=== PATIENT | female | born 1955 | race Two or more races ===

== ENCOUNTER 2016-03-19 10:26 | Emergency (ER) | payer MEDICAID, OTHER ==
[~2016-03-19] VITALS: Ht 160 cm; Wt 73.9 kg
[2016-03-19 11:39] VITALS: BP 120/66
== END 2016-03-19 13:00 | disposition home or self-care (01) ==
LOC: ER 10:33
DX: S90.122A Contusion of left lesser toe(s) without damage to nail, initial encounter (principal); S00.33XA Contusion of nose, initial encounter; Z91.041 Radiographic dye allergy status; W22.8XXA Striking against or struck by other objects, initial encounter; Y93.89 Activity, other specified; Y99.8 Other external cause status; Y92.89 Other specified places as the place of occurrence of the external cause
CPT/HCPCS: 73630

== ENCOUNTER 2016-10-23 21:29 | Emergency (ER) | payer OTHER ==
[~2016-10-23] VITALS: Ht 160 cm; Wt 76.2 kg
[2016-10-23 21:56] VITALS: BP 144/81
[2016-10-23 22:24] LABS: Basophils # (auto) 0 uL; Basophils % (auto) 0.3 % (0.0-2.0); CONDITION Y; Eosinophils # (auto) 0.3 uL; Eosinophils % (auto) 2.8 % (0.0-7.0); Hematocrit 43.7 % (36.0-46.0); Hemoglobin 14.7 g/dL (12.2-16.2); Lymphocytes % (auto) 34.3 % (10.0-50.0); Mean Corpuscular Hemoglobin 29.6 pg (28.0-32.0); Mean Corpuscular Hgb Conc. 33.7 g/dL (32.0-36.0); Mean Corpuscular Volume 87.8 fL (80.0-100.0); Mean Platelet Volume 8.6 fL (7.4-10.4); Monocytes # (auto) 0.9 uL; Monocytes % (auto) 7.9 % (0.0-12.0); Neutrophils # (auto) 6.3 uL; Neutrophils % (auto) 54.7 % (37.0-80.0); Platelet Count (auto) 273 10^3/uL (140-450); Red Cell Distribution Width 13.9 % (11.6-16.0); White Blood Cell 11.6 10^3/uL (4.4-10.8)
[2016-10-23 22:31] LABS: Urine Bilirubin Negative (Negative); Urine Blood Negative /uL (Negative); Urine Color Yellow (Yellow); Urine Glucose Normal (Normal); Urine Ketone Negative (Negative); Urine Mucus FEW (None Seen); Urine Nitrite Negative (Negative); Urine RBC 1 /hpf (0 - 4); Urine Squamous Epithelial Cell FEW /hpf (<5); Urine Urobilinogen Normal (Negative); Urine pH 6.5 (5.0-8.0)
[2016-10-23 22:44] LABS: Albumin 3.6 g/dL (3.4-5.0); Anion Gap 9 (5-15); BUN/Creatinine Ratio 32.3; Blood Urea Nitrogen 21 mg/dL (7-18); Calcium 8.3 mg/dL (8.5-10.1); Carbon Dioxide 27 mmol/L (21-32); Chloride 107 mmol/L (98-107); GFR African American 119 mL/min; GFR Non-African American 98 mL/min; Glucose 85 mg/dL (74-106); Magnesium 2.5 mg/dL (1.6-2.6); Potassium 3.8 mmol/L (3.5-5.1); Sodium 143 mmol/L (136-145)
[2016-10-23 22:54] LABS: Alkaline Phosphatase 107 U/L (45-117); Aspartate Aminotransferase 19 U/L (15-37); Bilirubin, Total 0.3 mg/dL (0.2-1.0); Total Protein 7.2 g/dL (6.4-8.2)
== END 2016-10-24 06:38 | disposition left against medical advice (07) ==
LOC: ER 21:53
DX: M54.5 Low back pain (principal); Z53.21 Procedure and treatment not carried out due to patient leaving prior to being seen by health care provider
CPT/HCPCS: 36415; 80053; 81001; 83735; 84484; 85025; 93005

== ENCOUNTER 2018-07-10 14:17 | Emergency (ER) | payer OTHER ==
[~2018-07-10] VITALS: Ht 160 cm; Wt 77.1 kg
[2018-07-10 14:45] LABS: Basophils # (auto) 0.1 uL; Basophils % (auto) 0.8 % (0.0-2.0); Eosinophils # (auto) 0.3 uL; Eosinophils % (auto) 3.3 % (0.0-7.0); Hematocrit 47.3 % (36.0-46.0); Hemoglobin 15.7 g/dL (12.2-16.2); Lymphocytes # (auto) 3.2 uL; Lymphocytes % (auto) 32.8 % (10.0-50.0); Mean Corpuscular Hemoglobin 29.6 pg (28.0-32.0); Mean Corpuscular Hgb Conc. 33.3 g/dL (32.0-36.0); Mean Corpuscular Volume 88.9 fL (80.0-100.0); Monocytes # (auto) 0.7 uL; Monocytes % (auto) 7.6 % (0.0-12.0); Neutrophils # (auto) 5.5 uL; Neutrophils % (auto) 55.5 % (37.0-80.0); Nucleated Red Blood Cells % 0.1 %; Platelet Count (auto) 222 10^3/uL (140-450); Red Blood Cells 5.31 10^6/uL (4.0-5.20); Red Cell Distribution Width 13.5 % (11.8-14.3); White Blood Cell 9.9 10^3/uL (4.4-10.8)
[2018-07-10 14:59] LABS: INR 0.94 (0.9-1.15); Partial Thromboplastin Time 30.5 sec (23.78-33.04); Prothrombin Time 10.1 sec (9.27-12.13)
[2018-07-10 15:13] LABS: Albumin 3.9 g/dL (3.4-5.0); Anion Gap 8 (5-15); Blood Urea Nitrogen 19 mg/dL (7-18); Calcium 8.8 mg/dL (8.5-10.1); Carbon Dioxide 25 mmol/L (21-32); Chloride 106 mmol/L (98-107); Glucose 105 mg/dL (74-106); Potassium 3.9 mmol/L (3.5-5.1); Sodium 139 mmol/L (136-145)
[2018-07-10 15:20] LABS: Alanine Aminotransferase 33 U/L (13-56); Alkaline Phosphatase 96 U/L (45-117); Aspartate Aminotransferase 25 U/L (15-37); BUN/Creatinine Ratio 30.6; Bilirubin, Total 0.3 mg/dL (0.2-1.0); GFR African American 125 mL/min; GFR Non-African American 103 mL/min; Total Protein 7.5 g/dL (6.4-8.2)
[2018-07-10] MEDS ORDERED: ASPirin 81 mg TAB PO ONE (16:15)
[2018-07-10 20:51] VITALS: BP 113/71
== END 2018-07-10 21:26 | disposition home or self-care (01) ==
LOC: ER 14:17
DX: R07.89 Other chest pain (principal); Z91.041 Radiographic dye allergy status
CPT/HCPCS: 36415; 71045; 80053; 83735; 83880; 84484; 85025; 85379; 85610; 85730; 93005; 94761

== ENCOUNTER 2018-11-28 14:04 | Emergency (ER) | payer SELFPAY ==
[~2018-11-28] VITALS: Ht 160 cm; Wt 77.1 kg
[2018-11-28 14:37] VITALS: BP 134/75
[2018-11-28 15:14] LABS: Albumin 3.8 g/dL (3.4-5.0); Anion Gap 7 (5-15); Blood Urea Nitrogen 15 mg/dL (7-18); Calcium 8.5 mg/dL (8.5-10.1); Carbon Dioxide 24 mmol/L (21-32); Chloride 105 mmol/L (98-107); Glucose 124 mg/dL (74-106); Potassium 3.8 mmol/L (3.5-5.1); Sodium 136 mmol/L (136-145)
[2018-11-28 15:18] LABS: Basophils # (auto) 0.1 uL; Basophils % (auto) 0.4 % (0.0-2.0); Eosinophils # (auto) 0 uL; Eosinophils % (auto) 0.2 % (0.0-7.0); Hematocrit 46.2 % (36.0-46.0); Hemoglobin 15.2 g/dL (12.2-16.2); Lymphocytes # (auto) 1.5 uL; Lymphocytes % (auto) 10.3 % (10.0-50.0); Mean Corpuscular Hemoglobin 29.3 pg (28.0-32.0); Mean Corpuscular Hgb Conc. 32.9 g/dL (32.0-36.0); Mean Corpuscular Volume 89.1 fL (80.0-100.0); Monocytes # (auto) 0.5 uL; Monocytes % (auto) 3.8 % (0.0-12.0); Neutrophils # (auto) 12.2 uL; Neutrophils % (auto) 85.3 % (37.0-80.0); Platelet Count (auto) 228 10^3/uL (140-450); Red Blood Cells 5.18 10^6/uL (4.0-5.20); Red Cell Distribution Width 13.6 % (11.8-14.3); White Blood Cell 14.3 10^3/uL (4.4-10.8)
[2018-11-28 15:20] LABS: Alanine Aminotransferase 25 U/L (13-56); Alkaline Phosphatase 95 U/L (45-117); Aspartate Aminotransferase 20 U/L (15-37); Bilirubin, Total 0.4 mg/dL (0.2-1.0); GFR African American 160 mL/min; GFR Non-African American 132 mL/min; Total Protein 7.5 g/dL (6.4-8.2)
[2018-11-28 15:38] LABS: Urine Bacteria NONE SEEN /hpf (None Seen); Urine Blood Negative /uL (Negative); Urine Mucus FEW (None Seen); Urine Specific Gravity 1.025 (1.001-1.035); Urine WBC 1 /hpf (0 - 5)
== END 2018-11-28 19:50 | disposition left against medical advice (07) ==
LOC: ER 14:04
DX: R11.2 Nausea with vomiting, unspecified (principal); R10.9 Unspecified abdominal pain; Z53.21 Procedure and treatment not carried out due to patient leaving prior to being seen by health care provider
CPT/HCPCS: 36415; 80053; 81001; 84484; 85025

== ENCOUNTER 2018-11-30 10:17 | Emergency (ER) | payer OTHER ==
[~2018-11-30] VITALS: Ht 160 cm; Wt 77.1 kg
[2018-11-30 10:48] VITALS: BP 130/79
== END 2018-11-30 13:52 | disposition left against medical advice (07) ==
LOC: ER 10:17
DX: R11.2 Nausea with vomiting, unspecified (principal); R10.13 Epigastric pain; R19.7 Diarrhea, unspecified; Z88.8 Allergy status to other drugs, medicaments and biological substances

== ENCOUNTER 2021-02-24 14:01 | Emergency (ER) | payer MEDICARE, MEDICAID ==
[~2021-02-24] VITALS: Ht 160 cm; Wt 77.1 kg
[2021-02-24 19:03] VITALS: BP 126/61
[2021-02-24] MEDS ORDERED: ACET1CAP14 PO ×2 (19:41→20:06)
[2021-02-24] MEDS ORDERED: IBUP800T27 PO (19:42)
[2021-02-24] MEDS ORDERED: traMADol HCL 50 MG TAB PO ONE (19:45)
[2021-02-24] MEDS ORDERED: TRAM50TA2 PO (19:51)
== END 2021-02-24 19:54 | disposition home or self-care (01) ==
LOC: ER 14:01
DX: S53.402A Unspecified sprain of left elbow, initial encounter (principal); E66.9 Obesity, unspecified; Z68.30 Body mass index [BMI] 30.0-30.9, adult; Z79.1 Long term (current) use of non-steroidal anti-inflammatories (NSAID); Z79.899 Other long term (current) drug therapy; Z88.8 Allergy status to other drugs, medicaments and biological substances; W01.0XXA Fall on same level from slipping, tripping and stumbling without subsequent striking against object, initial encounter; Y93.89 Activity, other specified; Y92.89 Other specified places as the place of occurrence of the external cause; Y99.8 Other external cause status
CPT/HCPCS: 73080

== ENCOUNTER 2021-03-12 12:13 | Emergency (ER) | payer MEDICARE, MEDICAID ==
[~2021-03-12] VITALS: Ht 160 cm; Wt 76.2 kg
[~2021-03-12 12:13] MED LIST: ACET1CAP14 PO; IBUP800T27 PO; TRAM50TA2 PO
[2021-03-12 15:20] VITALS: BP 127/81
== END 2021-03-12 16:41 | disposition home or self-care (01) ==
LOC: ER 12:13
DX: S09.90XA Unspecified injury of head, initial encounter (principal); Z91.041 Radiographic dye allergy status; Z98.890 Other specified postprocedural states; W19.XXXA Unspecified fall, initial encounter; Y93.89 Activity, other specified; Y92.89 Other specified places as the place of occurrence of the external cause; Y99.8 Other external cause status
CPT/HCPCS: 70450

== ENCOUNTER 2022-02-22 10:08 | Emergency (ER) | payer MEDICARE, MEDICAID ==
[~2022-02-22] VITALS: Ht 160 cm; Wt 83.0 kg
[2022-02-22] MEDS ORDERED: CLIN300C8 PO (10:52)
[2022-02-22] MEDS ORDERED: CEPH-510 PO (10:52)
[2022-02-22] MEDS ORDERED: cefTRIAXone SOD 1,000 MG VL IM ONE (11:00)
[2022-02-22] MEDS ORDERED: CLINDAMYCIN 600 MG/4 ML VL IM ONE (11:00)
[2022-02-22 11:32] LABS: Basophils # (auto) 0.1 10 ^3/uL (0-0.2); Basophils % (auto) 0.8 % (0.0-2.0); Eosinophils # (auto) 0.2 10 ^3/uL (0-0.8); Eosinophils % (auto) 2.3 % (0.0-7.0); Hemoglobin 15.1 g/dL (12.2-16.2); Lymphocytes # (auto) 2.7 10 ^3/uL (0.4-5.4); Lymphocytes % (auto) 29.4 % (10.0-50.0); Mean Corpuscular Hemoglobin 30.5 pg (28.0-32.0); Mean Corpuscular Hgb Conc. 34.2 g/dL (32.0-36.0); Mean Corpuscular Volume 89.1 fL (80.0-100.0); Monocytes # (auto) 0.6 10 ^3/uL (0-1.3); Monocytes % (auto) 6.2 % (0.0-12.0); Neutrophils # (auto) 5.7 10 ^3/uL (1.6-8.6); Neutrophils % (auto) 61.3 % (37.0-80.0); Nucleated Red Blood Cells % 0.2 %; Red Blood Cells 4.94 10^6/uL (4.0-5.20); Red Cell Distribution Width 13.5 % (11.8-14.3); White Blood Cell 9.3 10^3/uL (4.4-10.8)
[2022-02-22 12:11] LABS: Albumin 3.6 g/dL (3.4-5.0); Calcium 8.9 mg/dL (8.5-10.1); Potassium 4.5 mmol/L (3.5-5.1)
[2022-02-22 12:14] LABS: BUN/Creatinine Ratio 21.9
[2022-02-22 12:16] LABS: Bilirubin, Total 0.4 mg/dL (0.2-1.0); Total Protein 6.9 g/dL (6.4-8.2)
[2022-02-22 13:07] LABS: Urine Bacteria NONE SEEN /hpf (None Seen); Urine Blood Negative /uL (Negative); Urine Mucus FEW (None Seen); Urine Specific Gravity 1.025 (1.001-1.035); Urine WBC 8 /hpf (0 - 5)
[2022-02-22] MEDS ORDERED: CLINDAMYCIN HCL 150 MG CAP ONE (16:37)
[2022-02-22] MEDS ORDERED: CLINDAMYCIN HCL 150 MG CAP PO ONE (16:45)
[2022-02-22 16:50] VITALS: BP 136/98
== END 2022-02-22 17:08 | disposition home or self-care (01) ==
LOC: ER 10:12
DX: L03.211 Cellulitis of face (principal); K04.7 Periapical abscess without sinus; K02.9 Dental caries, unspecified; Z79.899 Other long term (current) drug therapy; Z79.2 Long term (current) use of antibiotics; Z79.1 Long term (current) use of non-steroidal anti-inflammatories (NSAID); Z88.8 Allergy status to other drugs, medicaments and biological substances
CPT/HCPCS: 36415; 70450; 70486; 71045; 80053; 81001; 84484; 85025; 93005; 96372; 99285; J0696; J7030

== ENCOUNTER 2022-04-18 12:38 | Emergency (ER) | payer MEDICARE, MEDICAID ==
[~2022-04-18] VITALS: Ht 160 cm; Wt 76.4 kg
[~2022-04-18 12:38] MED LIST changes: +CEPH-510 PO; +CLIN300C8 PO
[2022-04-18 13:47] VITALS: BP 135/84
[2022-04-18] MEDS ORDERED: ACETAMINOPHEN 500 MG TAB PO ONE (14:30)
[2022-04-18] MEDS ORDERED: ACET-1080 PO (14:47)
[2022-04-18] MEDS ORDERED: METH4PAK PO (14:47)
== END 2022-04-18 14:53 | disposition home or self-care (01) ==
LOC: ER 12:38
DX: T78.40XA Allergy, unspecified, initial encounter (principal); G44.209 Tension-type headache, unspecified, not intractable; Z98.890 Other specified postprocedural states; X58.XXXA Exposure to other specified factors, initial encounter
CPT/HCPCS: 70450

== ENCOUNTER 2025-02-14 12:30 | Inpatient (IN) | payer MEDICARE, MEDICAID ==
[~2025-02-14] VITALS: Ht 160 cm; Wt 76.3 kg
[~2025-02-14 12:30] MED LIST changes: +ACET-1080 PO; +ACET650T12 PO; +CLIN1CAP70 PO; -CLIN300C8 PO; +IBUP-1456 PO; -IBUP800T27 PO; +METH4PAK PO; +TAMS-35 PO; +ZOFR4T PO
--- NOTE | 2025-02-14 13:21 | ED.PDOC ---
History of Present Illness HPI Comments 69-year-old female who is Tajik-speaking presents to the ER with prior medical history of hydronephrosis two years ago: Surgical history of hernia repair surgery and a chief complaint of flank pain. Patient reports on having 10/10 right-sided flank pain for the past three days associated with nausea. Patient currently has not no urinary symptoms at this time. Patient took [id number] medication without relief. Denies any other symptoms at this time. Denies chills, fever, /V/D, SOB, CP. No other associated symptoms, modifiers, recent injuries or sick contacts present at this time. Chief Complaint: Flank Pain Time Seen by MD: 12:50 Reviewed Notes: Nurses Notes, Medications, Allergies Allergies: Coded Allergies: Iodine (Verified Allergy, Unknown, 02/14/25) Home Meds Active Scripts Ondansetron Odt 4MG Tab (ZOFRAN PO) 4 Mg Tb, 4 MG PO TIDPRN PRN for 3 Days, #9 TAB ODT TAB-DISSOLVE IN MOUTH, THEN SWALLOW Prov:DIANE LANDA MD 08/03/24 Acetaminophen (Acetaminophen Er) 650 Mg Tab, 650 MG PO TIDPRN PRN for 5 Days, #15 TAB Prov:DIANE LANDA MD 08/03/24 Tamsulosin Hcl (Flomax) 0.4 Mg Cap, 1 CAP PO DAILY for 7 Days, #30 CAP 11 Refills Prov:DIANE LANDA MD 08/03/24 Information Source: Patient Mode of Arrival: Ambulatory Severity: Moderate Timing: Days Duration: Since onset, Days Prehospital treatment: None Past Medical History Past Medical History (Other): Hydronephrosis two years ago Surgical History: Hernia Repair CUSTOM DESIGNER History: Denies all CUSTOM DESIGNER Hx Family History Family History: Reviewed,noncontributory to illness, Unknown Social History Smoker: Non-Smoker Alcohol: Denies ETOH Use Drugs: Denies Drug Use Lives In: Home Constitutional: denies: chills, diaphoresis, fatigue, fever, malaise, sweats, weakness, others EENTM: denies: blurred vision, double vision, ear bleeding, ear discharge, ear drainage, ear pain, ear ringing, eye pain, eye redness, hearing loss, mouth pain, mouth swelling, nasal discharge, nose bleeding, nose congestion, nose pain, photophobia, tearing, throat pain, throat swelling, voice changes, others Respiratory: denies: cough, hemoptysis, orthopnea, SOB at rest, shortness of breath, SOB with excertion, stridor, wheezing, others Cardiovascular: denies: chest pain, dizzy spells, diaphoresis, Dyspnea on e xertion, edema, irregular heart beat, left arm pain, lightheadedness, palpitations, PND, syncope, others Gastrointestinal: reports: nausea; denies: abdomen distended, abdominal pain, blood streaked bowels, constipated, diarrhea, dysphagia, difficulty swallowing, hematemesis, melena, poor appetite, poor fluid intake, rectal bleeding, rectal pain, vomiting, others Genitourinary: reports: flank pain; denies: abnormal vagina bleeding, burning, dyspareunia, dysuria, frequency, hematuria, incontinence, pain, , vagina discharge, urgency, others Neurological: denies: dizziness, fainting, headache, left sided numbness, left sided weakness, numbness, paresthesia, pre-existing deficit, right sided numbness, right sided weakness, seizure, speech problems, tingling, tremors, weakness, others Musculoskeletal: denies: back pain, gout, joint pain, joint swelling, muscle pain, muscle stiffness, neck pain, others Integumetry: denies: bruises, change in color, change in hair/nails, dryness, laceration, lesions, lumps, rash, wounds, others Allergic/Immunocompromised: denies: Difficulty Healing, Frequent Infections, Hives, Itching, others Hematologic/Lymphatic: denies: anemia, blood clots, easy bleeding, easy bruising, swollen glands, others Endocrine: denies: excessive hunger, excessive sweating, excessive thirst, excessive urination, flushing, intolerance to cold, intolerance to heat, unexplained weight gain, unexplained weight loss, others Psychiatric: denies: anxiety, bipolar disorder, depression, hopeless, panic disorder, schizophrenia, sleepless, suicidal, others All Other Systems: Reviewed and Negative Physical Exam General Appearance: Moderate Distress, Normal HEENT: Normal ENT Inspection, Pharynx Normal, TMs Normal Neck: Full Range of Motion, Non-Tender, Normal, Normal Inspection Respiratory: Chest Non-Tender, Lungs Clear, No Accessory Muscle Use, No Respiratory Distress, Normal Breath Sounds Cardiovascular: No Edema, No JVD, No Murmur, No Gallop, Normal Peripheral Pulses, Regular Rate/Rhythm Breast Exam: Deferred Gastrointestinal: No Organomegaly, Non Tender, No Pulsatile Mass, Normal Bowel Sounds, Soft Genitalia: Deferred Pelvic: Deferred Rectal: Deferred Extremities: No calf tenderness, Normal capillary refill, Normal inspection, Normal range of motion, Non-tender, No pedal edema Musculoskeletal : Apperance: Normal Neurologic: Alert, health information technician II-XII nml as Tested, No Motor Deficits, Normal Affect, Normal Mood, No Sensory Deficits Cerebellar Function: Normal Reflexes: Normal Skin: Dry, Normal Color, Warm Peripheral Pulses: 3+ Radial (R), 3+ Radial (L) Lymphatic: No Adenopathy Was a procedure done? Was a procedure done?: No Differential Dx Considerations may include: Anemia Electrolyte imbalance X-Ray, Labs, Meds, VS Vital Signs Date Time Temp Pulse Resp B/P (MAP) Pulse Ox O2 Delivery O2 Flow Rate FiO2 02/14/25 15:51 98.2 81 16 148/47 (80) 98 98.2 02/14/25 12:37 97.5 82 20 120/68 96 97.5 Lab Test 02/14/25 13:26 Range/Units White Blood Count 8.4 4.4-10.8 10^3/uL Red Blood Count 5.07 4.0-5.20 10^6/uL Hemoglobin 15.0 12.2-16.2 g/dL Hematocrit 44.7 36.0-46.0 % Mean Corpuscular Volume 88.2 80.0-100.0 fL Mean Corpuscular Hemoglobin 29.5 28.0-32.0 pg Mean Corpuscular Hemoglobin Concent 33.4 32.0-36.0 g/dL Red Cell Distribution Width 13.3 11.8-14.3 % Platelet Count 219 140-450 10^3/uL Mean Platelet Volume 8.6 6.9-10.8 fL Neutrophils (%) (Auto) 55.9 37.0-80.0 % Lymphocytes (%) (Auto) 31.4 10.0-50.0 % Monocytes (%) (Auto) 8.4 0.0-12.0 % Eosinophils (%) (Auto) 3.5 0.0-7.0 % Basophils (%) (Auto) 0.8 0.0-2.0 % Neutrophils # (Auto) 4.7 1.6-8.6 10 ^3/uL Lymphocytes # (Auto) 2.6 0.4-5.4 10 ^3/uL Monocytes # (Auto) 0.7 0-1.3 10 ^3/uL Eosinophils # (Auto) 0.3 0-0.8 10 ^3/uL Basophils # (Auto) 0.1 0-0.2 10 ^3/uL Nucleated Red Blood Cells 0.0 % Sodium Level 139 136-145 mmol/L Potassium Level 3.9 3.5-5.1 mmol/L Chloride Level 103 98-107 mmol/L Carbon Dioxide Level 29 20-31 mmol/L Anion Gap 7 5-15 Blood Urea Nitrogen 10 9-23 mg/dL Creatinine 0.61 0.550-1.02 mg/dL Glomerular Filtration Rate Calc 96 >90 mL/min BUN/Creatinine Ratio 16.4 10.0-20.0 Serum Glucose 116 H 74-106 mg/dL Calcium Level 9.2 8.7-10.4 mg/dL Patient alert. Came in because of flank pain. Vitals stable. Answering questions. Possibly has a kidney stone. CT scan of the abdomen reviewed does show possible liver lesion. She will need MRI. For better patient care she will be admitted for further studies. Was told to follow up with her primary care physician. Was told to come back if there is any problem. Time of 1ST Reevaluation: 13:18 Reevaluation 1ST: Unchanged Patient Education/Counseling: Diagnosis, Treatment, Prognosis Family Education/Counseling: No Family Present SEPSIS Sepsis Screen Date sepsis recognized/suspect: Feb 14, 2025 Time Sepsis recognized/suspect: 1237 Recent Procedure: No On Antibiotic Therapy: No Respiratory Rate >20: No Heart Rate >90: No Temp<36 C (96.8 F) or >38.3 C: No SBP <90 or MAP <65 mmHG: No New Acute Mental Status Change: No Is the patient on CPAP, BIPAP,: No Physician Orders Urinalysis (02/14/25 13:15) Ct Ab Pel Wo Con-No Oral Or Iv (02/14/25 13:16) Vital Signs Date Time Temp Pulse Resp B/P (MAP) Pulse Ox O2 Delivery O2 Flow Rate FiO2 02/14/25 15:51 98.2 81 16 148/47 (80) 98 98.2 02/14/25 12:37 97.5 82 20 120/68 96 97.5 Laboratory Tests Test 02/14/25 13:26 White Blood Count 8.4 10^3/uL (4.4-10.8) Departure 1 Departure Time of Disposition: 14:09 Impression: Primary Impression: Acute abdominal pain Additional Impression: Liver lesion Disposition: ADMITTED INPATIENT Admit to: Med Surg Condition: Guarded Critical Care Note Critical Care Time?: No Stability Stability form required: No Heart Score Heart Score: Heart Score Response (Comments) Value History N/A 0 EKG N/A 0 Age N/A 0 Risk Factors N/A 0 Troponin N/A 0 Total 0 I personally scribed for STACEY SAMANIEGO MD ([email or web address]) on 02/14/25 at 13:20. Electronically submitted by Abel Lyons ([email or web address]). STACEY SAMANIEGO MD Feb 14, 2025 13:20
[2025-02-14 14:01] LABS: Hematocrit 44.7 % (36.0-46.0); Hemoglobin 15.0 g/dL (12.2-16.2); Mean Corpuscular Hemoglobin 29.5 pg (28.0-32.0); Mean Corpuscular Volume 88.2 fL (80.0-100.0); Nucleated Red Blood Cells % 0.0 %
[2025-02-14 14:06] LABS: Chloride 103 mmol/L (98-107); Potassium 3.9 mmol/L (3.5-5.1); Sodium 139 mmol/L (136-145)
[2025-02-14 14:07] LABS: Anion Gap 7 (5-15); Carbon Dioxide 29 mmol/L (20-31)
[2025-02-14 14:08] LABS: Calcium 9.2 mg/dL (8.7-10.4)
[2025-02-14 14:13] LABS: BUN/Creatinine Ratio 16.4 (10.0-20.0); Blood Urea Nitrogen 10 mg/dL (9-23)
[2025-02-14 14:17] LABS: Glucose 116 mg/dL (74-106)
--- NOTE | 2025-02-14 15:50 | DVH ---
INDICATION: stone TECHNIQUE: CT axial images of the abdomen and pelvis are obtained without contrast. Coronal and sagittal reformats were obtained. Radiation Dose Information: CTDI volume is 10.4 mGy. Dose-length product is 540.29 mGy*cm COMPARISON: CT CT AB PEL WO CON-NO ORAL OR IV on DOS: 08/03/24 FINDINGS: There is limited interpretation of the abdomen and pelvis without administration of intravenous contrast. Lung bases demonstrate no pleural effusion. Adrenal glands, spleen, pancreas unremarkable in shape. Hepatic steatosis.m Right hepatic lobe hypodense lesion measuring 4.4 x 4.4 cm previously 4.1 x 3.6 cm. Left hepatic lobe calcifications. Kidneys demonstrate no hydronephrosis no nephrolithiasis. Stomach is partially distended. Small bowel loops normal in caliber. Colonic diverticular disease. Moderate to large volume stool in the colon. No secondary signs for appendicitis. Abdominal aortic atherosclerotic disease. Bladder partially distended. No free pelvic fluid. No inguinal lymphadenopathy. [id number] bilateral sacroiliac degenerative joint disease. Moderate lumbar degenerative disc disease most pronounced at L5-S1.4 mm anterolisthesis L5 on S1.4 mm anterolisthesis L4 upon L5. IMPRESSION: Limited evaluation without contrast. No hydronephrosis/ nephrolithiasis. Colonic diverticular disease. Moderate volume stool within the colon. Hepatic steatosis. Right hepatic lobe hypodense lesion measuring 4.4 x 4.4 cm, previously 4.1 x 3.6 cm. Recommend multiphasic MRI abdomen with and without contrast to evaluate and exclude any type of neoplastic process.
[2025-02-14 18:04] LABS: Urine Protein, UAD Negative (Negative)
[2025-02-14 19:07] VITALS: RESP 18; O2SAT 98
[2025-02-14] MEDS: ACETAMINOPHEN 325 MG TAB PO ONE (20:57)
[2025-02-15] VITALS (10 sets, daily range): BP systolic 123–155; BP diastolic 77–92; PULSE 72–93; RESP 14–20; TEMP 97.6–97.8; O2SAT 93–97
[2025-02-15 01:47] LABS: Amphetamine Screen, Urine Neg (NEGATIVE); Barbiturate Scree,Urine Neg (NEGATIVE); Benzodiazephine Screen, Urine Neg (NEGATIVE); Cocaine Screen, Urine Neg (NEGATIVE); Opiate Scree,Urine Neg (NEGATIVE); Phencyclidine Screen, Urine Neg (NEGATIVE)
[2025-02-15 01:48] LABS: Cannabinoid Screen, Urine Neg (NEGATIVE)
[2025-02-15] MEDS: KETOROLAC TROMETH 30 MG/ML 1ML VIAL IV PRN (04:21)
[2025-02-15] MEDS: SODIUM CHLORIDE 0.9% 1,000 ML IV ONE (04:23)
--- NOTE | 2025-02-15 04:56 | DVHHPRES ---
History of Present Illness Resident Creating Document: YOKASTA RAI RESIDENT History of Present Illness Kassidy Ch is a 69-year-old female with past medical history of renal calculi, prediabetes, femoral hernia presented to the hospital with complaints of right flank pain and urinary frequency. She rates the pain 10 on 10 in intensity, sharp, nonradiating. She also complains of associated nausea and nonbilious, nonbloody vomiting. She reports that last year, she was diagnosed with renal calculi in a hospital in [place], sent home with medications after which she possibly passed the stones. She denies any fever, shortness of breath or diarrhea. PMHx:renal calculi, prediabetes, femoral hernia PSHx: None Family history: nonrelevant Social history: denies smoking, alcohol or illicit drug use Home medication: none Allergic history: [place] Review of Systems Review of Systems General: patient denies fever, fatigue, weaknes, sweating, any recent changes in appetite and weight HEENT: No headaches, visiual changes, hearing loss, tinnitus, nasal congestion and discharge, and sore throat. Cardiovascular: Denies chest pain, palpitations, dyspnea on exertion, orthopnea, or claudication. Respiratory: No cough, and wheezing. Gastrointestinal: Complaints of right flank pain Genitourinary: No dysuria, hematuria, discharge, frequency, urgency, nocturia, incontinence, and urinary retention. Endocrine: No heat or cold intolerance, polydipsia, polyuria, and polyphagia. Neurological: No dizziness, extremity weakness and numbness, tremors, gait disturbance, seizures, and memory impairment. Psychiatric: Denies depression, anxiety,or insomnia. Musculoskeletal: Denies neck pain, stiffness and swelling, back pain, muscle weakness, joint pain, stiffness, swelling, or limited range of motion. Skin: No rashes, itching, skin lesion, changes in hair, nail, skin texture and breast. Hematologic/Lymphatic: Denies easy bruising, bleeding tendencies, or lymph node enlargement. Allergies: Coded Allergies: Iodine (Verified Allergy, Unknown, 02/14/25) Medications Current Medications Medications Dose Ordered Sig/Tasneem Route Start Time Stop Time Status Last Admin Dose Admin Enoxaparin Sodium 40 mg DAILY SC 02/15/25 10:00 Acetaminophen 650 mg Q6HR PO 02/15/25 06:00 Ketorolac Tromethamine 15 mg Q6HPRN PRN IV 02/14/25 23:45 02/19/25 23:44 02/15/25 04:21 15 MG Ceftriaxone Sodium 50 ml @ 100 mls/hr Q24H IV 02/15/25 07:00 Exam Vital Signs Vital Signs Date Time Temp Pulse Resp B/P (MAP) Pulse Ox O2 Delivery O2 Flow Rate FiO2 02/15/25 01:02 97.6 76 20 132/77 (95) 97 97.6 02/15/25 01:02 Room Air* 0 21 Exam General Appearance: Alert, Oriented X3, Cooperative, No acute distress HEENT: Atraumatic, PERRLA, EOMI, Mucous membrane moist/pink Respiratory: Clear to auscultation, Normal air movement Cardiovascular: Regular rate, Normal S1, Normal S2, No murmurs, no chest wall tenderness Abdominal: right flank tenderness Extremities: No clubbing, No cyanosis, No edema, Normal pulses, No tenderness/swelling Skin: No rashes, No breakdown, No significant lesion Neuro: Normal gait, Normal speech, Strength at 5/5 X4 ext, Normal tone, Sensation intact, Cranial nerves 3-12 NL, Reflexes 2+ Psych/Mental Status: Mental status NL, Mood NL Labs/Xrays Labs Test 02/14/25 15:45 02/14/25 13:26 Range/Units Urine Color Colorless Yellow Urine Clarity Clear Clear Urine pH 6.0 5.0-9.0 Urine Specific [place] 1.010 1.001-1.035 Urine Protein Negative Negative Urine Ketones Negative Negative Urine Blood Negative Negative /uL Urine Nitrite Negative Negative Urine Bilirubin Negative Negative Urine Urobilinogen Normal Negative mg/dL Urine Leukocyte Esterase 1+ Negative /uL Urine RBC 1 0 - 4 /hpf Urine Microscopic WBC 12 H 0-5 /HPF Urine Squamous Epithelial Cells Few <5 /hpf Urine Bacteria None seen None Seen /hpf Urine Glucose Normal Normal mg/dL Urine Opiates Screen Neg NEGATIVE Urine Fentanyl Screen Neg NEGATIVE Urine Barbiturates Screen Neg NEGATIVE Urine Phencyclidine Screen Neg NEGATIVE Urine Amphetamines Screen Neg NEGATIVE Urine Benzodiazepines Screen Neg NEGATIVE Urine Cocaine Screen Neg NEGATIVE Urine Cannabinoids Screen Neg NEGATIVE White Blood Count 8.4 4.4-10.8 10^3/uL Red Blood Count 5.07 4.0-5.20 10^6/uL Hemoglobin 15.0 12.2-16.2 g/dL Hematocrit 44.7 36.0-46.0 % Mean Corpuscular Volume 88.2 80.0-100.0 fL Mean Corpuscular Hemoglobin 29.5 28.0-32.0 pg Mean Corpuscular Hemoglobin Concent 33.4 32.0-36.0 g/dL Red Cell Distribution Width 13.3 11.8-14.3 % Platelet Count 219 140-450 10^3/uL Mean Platelet Volume 8.6 6.9-10.8 fL Neutrophils (%) (Auto) 55.9 37.0-80.0 % Lymphocytes (%) (Auto) 31.4 10.0-50.0 % Monocytes (%) (Auto) 8.4 0.0-12.0 % Eosinophils (%) (Auto) 3.5 0.0-7.0 % Basophils (%) (Auto) 0.8 0.0-2.0 % Neutrophils # (Auto) 4.7 1.6-8.6 10 ^3/uL Lymphocytes # (Auto) 2.6 0.4-5.4 10 ^3/uL Monocytes # (Auto) 0.7 0-1.3 10 ^3/uL Eosinophils # (Auto) 0.3 0-0.8 10 ^3/uL Basophils # (Auto) 0.1 0-0.2 10 ^3/uL Nucleated Red Blood Cells 0.0 % Sodium Level 139 136-145 mmol/L Potassium Level 3.9 3.5-5.1 mmol/L Chloride Level 103 98-107 mmol/L Carbon Dioxide Level 29 20-31 mmol/L Anion Gap 7 5-15 Blood Urea Nitrogen 10 9-23 mg/dL Creatinine 0.61 0.550-1.02 mg/dL Glomerular Filtration Rate Calc 96 >90 mL/min BUN/Creatinine Ratio 16.4 10.0-20.0 Serum Glucose 116 H 74-106 mg/dL Calcium Level 9.2 8.7-10.4 mg/dL SEPSIS Sepsis Screen Date sepsis recognized/suspect: Feb 14, 2025 Time Sepsis recognized/suspect: 1910 Recent Procedure: No On Antibiotic Therapy: No Respiratory Rate >20: No Heart Rate >90: No Temp<36 C (96.8 F) or >38.3 C: No SBP <90 or MAP <65 mmHG: No New Acute Mental Status Change: No Is the patient on CPAP, BIPAP,: No Physician Orders Admit (02/14/25 23:36) Code Status (02/14/25 23:36) Enoxaparin Sodium (Lovenox) (02/15/25 10:00) Complete Blood Count (02/15/25 04:00) Comprehensive Metabolic Panel (02/15/25 04:00) Consistent Carb(Ccho)Diabetes (02/15/25 Breakfast) Acetaminophen Tablet (Tylenol Tablet) (02/15/25 06:00) Ketorolac Injection (Toradol Injection) (02/14/25 23:45) Urine Bacterial Culture (02/15/25 01:08) Ceftriaxone 1gm/50ml (Rocephin) (02/15/25 07:00) Hemoglobin A1c (02/15/25 04:39) Lipid Panel (02/15/25 04:39) Blood Culture (02/15/25 04:47) Afp Serum Tumor Marker (02/15/25 04:48) Vital Signs Date Time Temp Pulse Resp B/P (MAP) Pulse Ox O2 Delivery O2 Flow Rate FiO2 02/15/25 01:02 97.6 76 20 132/77 (95) 97 97.6 02/15/25 01:02 76 20 97 Room Air* 0 21 02/15/25 00:36 97.3 84 16 128/85 (99) 96 97.3 02/14/25 21:04 82 18 115/73 (87) 96 Medications Medications Dose Ordered Sig/Tasneem Route Start Time Stop Time Status Last Admin Dose Admin Acetaminophen 650 mg ONCE ONCE PO 02/14/25 20:55 02/14/25 20:56 DC 02/14/25 20:57 650 MG Ketorolac Tromethamine 15 mg Q6HPRN PRN IV 02/14/25 23:45 02/19/25 23:44 02/15/25 04:21 15 MG Sodium Chloride 1,000 ml @ 1,000 mls/hr Q1H ONCE IV 02/15/25 01:15 02/15/25 02:14 DC 02/15/25 04:23 1,000 MLS/HR Assessment/Plan Assessment/Plan Assessment and plan Acute complicated UTI Acute pyelonephritis History of renal calculi IV fluids IV Rocephin Urine culture, blood culture Pain management with scheduled Tylenol, Toradol p.r.n. Hepatic steatosis Rule out hepatocellular carcinoma Three-phase CT Alpha-fetoprotein Colonic diverticulosis follow up with PCP on discharge Prediabetes Blood glucose levels Hemoglobin A1c PUD prophylaxis: not needed DVT prophylaxis: Levonox 40mg Barriers to discharge: Medical diagnosis and management in progress. Patient lives with self / family. Independent for ADL. PCP: Specialist Relevant To Admission: None Case discussed with Dr. Jacobsen. Code Status: Full Code. Complex patient care discussion needed. Spend total 33 minutes for bedside assessment, case discussion and management. Plan discussed with: Patient My Orders Orders - YOKASTA RAI Procedure Category Date Status Time Admit ADMIT 02/14/25 Transmitted 23:36 Code Status CODE 02/14/25 Transmitted 23:36 Enoxaparin Sodium PHA 02/15/25 In Process (Lovenox) 10:00 Complete Blood Count LAB 02/15/25 Logged 04:00 Comprehensive LAB 02/15/25 Logged Metabolic Panel 04:00 Consistent DIET 02/15/25 Transmitted Carb(Ccho)Diabetes Breakfast Acetaminophen Tablet PHA 02/15/25 In Process (Tylenol Tablet) 06:00 Ketorolac Injection PHA 02/14/25 In Process (Toradol Injection) 23:45 Urine Bacterial MARTÍN 02/15/25 Uncollected Culture 01:08 Ceftriaxone 1gm/50ml PHA 02/15/25 In Process (Rocephin) 07:00 Hemoglobin A1c LAB 02/15/25 Logged 04:39 Lipid Panel LAB 02/15/25 Logged 04:39 Blood Culture MARTÍN 02/15/25 Uncollected 04:47 Afp Serum Tumor Marker LAB 02/15/25 Logged 04:48 Visit Coding STANDARD RES Billing Provider: RUFINO JACOBSEN MD Date of Service if different f: Feb 14, 2025 Common Visit Codes: 06173-[id number] INP/OBS CARE (HIGH) Secondary Visit Codes: [id number] CARE PLAN 30 MINUTES YOKASTA RAI Feb 15, 2025 04:56
[2025-02-15] MEDS: ACETAMINOPHEN 325 MG TAB PO SCH (06:00)
[2025-02-15 09:26] LABS: Hematocrit 43.3 % (36.0-46.0); Hemoglobin 14.3 g/dL (12.2-16.2); Mean Corpuscular Hemoglobin 29.1 pg (28.0-32.0); Mean Corpuscular Volume 87.9 fL (80.0-100.0); Nucleated Red Blood Cells % 0.1 %
[2025-02-15 09:35] LABS: Alanine Aminotransferase 20 U/L (7-40); Albumin 3.8 g/dL (3.2-4.8); Alkaline Phosphatase 100 U/L (46-116); Anion Gap 6 (5-15); BUN/Creatinine Ratio 17.6 (10.0-20.0); Bilirubin, Total 0.4 mg/dL (0.2-1.0); Blood Urea Nitrogen 12 mg/dL (9-23); Carbon Dioxide 30 mmol/L (20-31); Chloride 104 mmol/L (98-107); Potassium 4.1 mmol/L (3.5-5.1); Sodium 140 mmol/L (136-145); Total Protein 6.2 g/dL (5.7-8.2)
[2025-02-15 09:38] LABS: Calcium 8.6 mg/dL (8.7-10.4); Cholesterol 133 mg/dL (< 200); Glucose 159 mg/dL (74-106); HDL Cholesterol 49 mg/dL (40-59); Triglycerides 159 mg/dL (< 150)
[2025-02-15] MEDS: ENOXAPARIN SOD 40 MG/0.4 ML SYRINGE SC SCH (10:28)
[2025-02-15] MEDS ORDERED: HYDROcodone-ACET 5/325MG TAB PO PRN (15:45)
[2025-02-15] MEDS ORDERED: MORPHINE SULFATE 4 MG/ML SYR/VIAL IV PRN (16:15)
--- NOTE | 2025-02-15 16:36 | DVHPNRES ---
Progress Note Date Seen: Feb 15, 2025 Resident Creating Document: BONITA GIL RESIDENT Medical Necessity Reason Pt with a Central, PICC or Fol: No Subjective Review of Systems Kassidy Ch is a 69-year-old female with past medical history of renal calculi, prediabetes, femoral hernia presented to the hospital with complaints of right flank pain and urinary frequency. She rates the pain 10 on 10 in intensity, sharp, nonradiating. She also complains of associated nausea and nonbilious, nonbloody vomiting. She reports that last year, she was diagnosed with renal calculi in a hospital in [place], sent home with medications after which she possibly passed the stones. She denies any fever, shortness of breath or diarrhea. Lab workup revealed hemoglobin A1c 6.5, TG 159, urinalysis 1+ leukocyte esterase, WBC 12. UDS negative.-CT abdomen and pelvis revealed- No hydronephrosis/ nephrolithiasis. Colonic diverticular disease. Moderate volume stool within the colon. Hepatic steatosis. Right hepatic lobe hypodense lesion measuring 4.4 x 4.4 cm, previously 4.1 x 3.6 cm. PMHx:renal calculi, prediabetes, femoral hernia PSHx: None Family history: nonrelevant Social history: denies smoking, alcohol or illicit drug use Home medication: none Allergic history: [place], iodine Patient was seen today at bedside Labs and chart reviewed Patient reported pain is improving Patient on ceftriaxone for suspected UTI/pyelonephritis Ordered baclofen and Solu-Medrol for possible musculoskeletal pain Pending urine culture Objective vital signs Vital Sign Date Time Temp Pulse Resp B/P (MAP) Pulse Ox O2 Delivery O2 Flow Rate FiO2 02/15/25 16:09 97.8 79 14 140/79 (99) 97 97.8 02/15/25 08:00 Room Air* 0 21 medications Current Medications Medications Dose Ordered Sig/Tasneem Route Start Time Stop Time Status Last Admin Dose Admin Enoxaparin Sodium 40 mg DAILY SC 02/15/25 10:00 02/15/25 10:28 40 MG Acetaminophen 650 mg Q6HR PO 02/15/25 06:00 02/15/25 11:46 650 MG Ceftriaxone Sodium 50 ml @ 100 mls/hr Q24H IV 02/15/25 07:00 02/15/25 06:07 100 MLS/HR Baclofen 10 mg BID PO 02/15/25 15:30 Pantoprazole Sodium 40 mg DAILY IV 02/16/25 10:00 Morphine Sulfate 1 mg Q4HPRN PRN IV 02/15/25 16:15 Acetaminophen/ Hydrocodone Bitart 1 tab Q4HPRN PRN PO 02/15/25 15:45 Examination General examination- , alert, awake HEENT- PEERLA, no acute nasal discharge Cardiovascular- S1-S2 audible, rate and rhythm regular, no murmur Respiratory- CTAB, no wheeze or rhonchi Gastrointestinal-nontender, bowel sound+. Nondistended Musculoskeletal-no acute joint swelling or tenderness or redness Renal system-right costovertebral angle tenderness positive Lower extremity- no leg edema Neurological- cranial nerves intact, no acute dysarthria or dysphagia Psychiatry- denies depression or SI or HI Skin- no acute rash or purpura laboratory and microbiology Laboratory Tests 02/15/25 08:54 Test 02/15/25 08:54 Range/Units Serum Glucose 159 H 74-106 mg/dL Problem List/Assessment/Plan Problem List/Assessment/Plan Assessment and plan # acute complicated UTI # suspected acute pyelonephritis -pending urine culture -continue ceftriaxone as prescribed -oral hydration -monitor vitals # suspected musculoskeletal pain/sciatica -ordered Solu-Medrol -ordered baclofen # hepatic steatosis # right hepatic lesion #Right hepatic lobe hypodense lesion measuring 4.4 x 4.4 cm, previously 4.1 x 3.6 cm. -patient was advised to follow up at [facility] for possible three- phase CT scan of the abdomen/liver for further evaluation and care # diverticulosis Avoid dehydration and nephrotoxic drugs # prediabetes -low carb diet # history of renal stone -no stone noted on the CT scan of the abdomen # hyperlipidemia -atorvastatin 20 mg p.o. daily Goals of care, Code status full code ; discussed with >15 minutes PUD prophylaxis: Pantoprazole DVT prophylaxis: Lovenox Plan discussed with Dr. Trinidad , nursing staff, Total time spent on patient evaluation, chart review, assessment and plan, discussion discussion >35 minutes Plan discussed with: Patient, Daughter, Other (RN) My Orders My Orders Orders - BONITA GIL Procedure Category Date Status Time Baclofen Tablet PHA 02/15/25 In Process (Liorisal Tablet) 15:30 Visit Coding STANDARD RES Billing Provider: LYNN SÁNCHEZ MD Date of Service if different f: Feb 15, 2025 Common Visit Codes: [id number] INP/OBS CARE(HIGH) BONITA GIL RESIDENT Feb 15, 2025 16:36
[2025-02-15] MEDS: methylPREDNISolone SOD SUCC 40 MG/ML VL IV ONE (17:53)
[2025-02-15] MEDS: PANTOPRAZOLE 40 MG/10 ML VIAL INJ IV ONE (17:53)
[2025-02-15] MEDS: BACLOFEN 10 MG TAB PO SCH (17:54)
[2025-02-15] MEDS: ATORVASTATIN 20 MG TAB PO SCH (21:36)
[2025-02-16 01:00] VITALS: BP 142/70; PULSE 85; RESP 17; TEMP 97.4; O2SAT 92
[2025-02-16 04:59] VITALS: BP 126/73; PULSE 85; RESP 17; TEMP 97.9; O2SAT 95
[2025-02-16] MEDS ORDERED: NITR-87 PO ×2 (08:39→12:17)
[2025-02-16] MEDS ORDERED: PANT40T PO ×2 (08:39→12:17)
[2025-02-16] MEDS ORDERED: BACL10TA PO ×2 (08:39→12:17)
[2025-02-16] MEDS ORDERED: PRED20TA2 PO ×2 (08:39→12:17)
[2025-02-16 09:00] VITALS: BP 119/52; PULSE 79; RESP 19; TEMP 97.9; O2SAT 95
[2025-02-16] MEDS: PANTOPRAZOLE 40 MG/10 ML VIAL INJ IV SCH (09:37)
[2025-02-16 10:04] LABS: Hematocrit 45.7 % (36.0-46.0); Hemoglobin 15.0 g/dL (12.2-16.2); Mean Corpuscular Hemoglobin 28.8 pg (28.0-32.0); Mean Corpuscular Volume 87.4 fL (80.0-100.0); Nucleated Red Blood Cells % 0.0 %
--- NOTE | 2025-02-16 10:08 | DVHDSRES ---
Discharge Summary Date of Admission Resident Creating Document: BONITA GIL RESIDENT Feb 14, 2025 at 23:36 Date of Discharge: Feb 16, 2025 Admitting Diagnosis Acute complicated UTI Labs/Diagnostic Data: Laboratory Results Test 02/16/25 09:34 02/15/25 08:54 02/14/25 15:45 Eosinophils (%) (Auto) 2.9 % (0.0-7.0) Eosinophils # (Auto) 0.3 10 ^3/uL (0-0.8) Basophils # (Auto) 0 10 ^3/uL (0-0.2) Nucleated Red Blood Cells 0.1 % Hemoglobin A1c 6.5 % A1C (<5.7) Total Bilirubin 0.4 mg/dL (0.2-1.0) Aspartate Amino Transferase (AST) 24 U/L (13-40) Alanine Aminotransferase (ALT) 20 U/L (7-40) Alkaline Phosphatase 100 U/L (46-116) C-Reactive Protein High Sensitivity 0.45 mg/dL (<1.0) Total Protein 6.2 g/dL (5.7-8.2) Albumin 3.8 g/dL (3.2-4.8) Triglycerides Level 159 mg/dL (< 150) Cholesterol Level 133 mg/dL (< 200) LDL Cholesterol 75 mg/dL (< 100) HDL Cholesterol 49 mg/dL (40-59) Tumor Marker Alpha Fetoprotein <1.8 ng/mL (0.0-9.2) Urine Color Colorless (Yellow) Urine Clarity Clear (Clear) Urine pH 6.0 (5.0-9.0) Urine Specific Orma 1.010 (1.001-1.035) Urine Protein Negative (Negative) Urine Ketones Negative (Negative) Urine Blood Negative /uL (Negative) Urine Nitrite Negative (Negative) Urine Bilirubin Negative (Negative) Urine Urobilinogen Normal mg/dL (Negative) Urine Leukocyte Esterase 1+ /uL (Negative) Urine RBC 1 /hpf (0 - 4) Urine Microscopic WBC 12 /HPF (0-5) Urine Squamous Epithelial Cells Few /hpf (<5) Urine Bacteria None seen /hpf (None Seen) Urine Glucose Normal mg/dL (Normal) Urine Opiates Screen Neg (NEGATIVE) Urine Fentanyl Screen Neg (NEGATIVE) Urine Barbiturates Screen Neg (NEGATIVE) Urine Phencyclidine Screen Neg (NEGATIVE) Urine Amphetamines Screen Neg (NEGATIVE) Urine Benzodiazepines Screen Neg (NEGATIVE) Urine Cocaine Screen Neg (NEGATIVE) Urine Cannabinoids Screen Neg (NEGATIVE) Brief Hx & Hospital Course: Kassidy Villanueva is a 69-year-old female with past medical history of renal calculi, prediabetes, femoral hernia presented to the hospital with complaints of right flank pain and urinary frequency. She rates the pain 10 on 10 in intensity, sharp, nonradiating. She also complains of associated nausea and nonbilious, nonbloody vomiting. She reports that last year, she was diagnosed with renal calculi in a hospital in [place], sent home with medications after which she possibly passed the stones. She denies any fever, shortness of breath or diarrhea. Lab workup revealed hemoglobin A1c 6.5, TG 159, urinalysis 1+ leukocyte esterase, WBC 12. UDS negative.-CT abdomen and pelvis revealed- No hydronephrosis/ nephrolithiasis. Colonic diverticular disease. Moderate volume stool within the colon. Hepatic steatosis. Right hepatic lobe hypodense lesion measuring 4.4 x 4.4 cm, previously 4.1 x 3.6 cm. Hospital course-during hospital course patient was treated conservatively with IV fluid and IV antibiotic. Patient was also given Solu-Medrol 1 dose and baclofen for possible musculoskeletal pain. Patient's symptoms improved. Patient is being discharged with Macrobid for 5 days. Patient was advised to follow up at [facility] for triple phase CT scan for further evaluation and care of hepatic lesion. Patient was advised to follow up at [facility] with a uterine culture report/PCP. Patient was hemodynamically stable on discharge. All questions answered. General examination- , alert, awake HEENT- PEERLA, no acute nasal discharge Cardiovascular- S1-S2 audible, rate and rhythm regular, no murmur Respiratory- CTAB, no wheeze or rhonchi Gastrointestinal-nontender, bowel sound+. Nondistended Musculoskeletal-no acute joint swelling or tenderness or redness Renal system-right costovertebral angle tenderness positive Lower extremity- no leg edema Neurological- cranial nerves intact, no acute dysarthria or dysphagia Psychiatry- denies depression or SI or HI Skin- no acute rash or purpura Assessment # acute complicated UTI # suspected acute pyelonephritis # suspected musculoskeletal pain/sciatica # hepatic steatosis # right hepatic lesion #Right hepatic lobe hypodense lesion measuring 4.4 x 4.4 cm, previously 4.1 x 3.6 cm. # diverticulosis # prediabetes # history of renal stone # hyperlipidemia Plan Macrobid as prescribed Prednisone as prescribed Baclofen as prescribed Patient was advised to follow up at [facility] with urine culture report/PCP Patient was also advised to follow up at [facility] fo r further evaluation and care of liver mass/lesion for three-phase CT scan Plan care discussed with Dr. Trinidad Operations or Procedures [place] [id number] Ph: [phone] DIAGNOSTIC IMAGING Diagnostic Imaging Report : [id number] Signed PATIENT: KASSIDY VILLANUEVA ACCT: [id number] UNIT: [id number] : 1955 LOC: [facility] ROOM / BED: [address] [place] [address] AGE / SEX: 69 / F ADM STATUS: ADM IN SERVICE [id number] ORDERING PHYSICIAN: STACEY SAMANIEGO MD PROCEDURE(s): ABPL - CT AB PEL WO CON-NO ORAL OR IV REASON: stone ORDER NUMBER(s): [id number], ACCESSION NUMBER(s): [id number] INDICATION: stone TECHNIQUE: CT axial images of the abdomen and pelvis are obtained without contrast. Coronal and sagittal reformats were obtained. Radiation Dose Information: CTDI volume is 10.4 mGy. Dose-length product is 540.29 mGy*cm COMPARISON: CT CT AB PEL WO CON-NO ORAL OR IV on DOS: 08/03/24 FINDINGS: There is limited interpretation of the abdomen and pelvis without administration of intravenous contrast. Lung bases demonstrate no pleural effusion. Adrenal glands, spleen, pancreas unremarkable in shape. Hepatic steatosis.m Right hepatic lobe hypodense lesion measuring 4.4 x 4.4 cm previously 4.1 x 3.6 cm. Left hepatic lobe calcifications. Kidneys demonstrate no hydronephrosis no nephrolithiasis. Stomach is partially distended. Small bowel loops normal in caliber. Colonic diverticular disease. Moderate to large volume stool in the colon. No secondary signs for appendicitis. Abdominal aortic atherosclerotic disease. Bladder partially distended. No free pelvic fluid. No inguinal lymphadenopathy. [id number] bilateral sacroiliac degenerative joint disease. Moderate lumbar degenerative disc disease most pronounced at L5-S1.4 mm anterolisthesis L5 on S1.4 mm anterolisthesis L4 upon L5. IMPRESSION: Limited evaluation without contrast. No hydronephrosis/ nephrolithiasis. Colonic diverticular disease. Moderate volume stool within the colon. Hepatic steatosis. Right hepatic lobe hypodense lesion measuring 4.4 x 4.4 cm, previously 4.1 x 3.6 cm. Recommend multiphasic MRI abdomen with and without contrast to evaluate and exclude any type of neoplastic process. ATED BY: OSIEL GREEN MD DICTATED DATE/TIME: 02/14/25 1548 SIGNED BY: OSIEL GREEN MD SIGNED DATE/TIME: 02/14/25 1548 CC: Condition at Discharge: Stable Final Diagnosis/Problems List # acute complicated UTI # suspected acute pyelonephritis # suspected musculoskeletal pain/sciatica # hepatic steatosis # right hepatic lesion #Right hepatic lobe hypodense lesion measuring 4.4 x 4.4 cm, previously 4.1 x 3.6 cm. # diverticulosis # prediabetes # history of renal stone # hyperlipidemia Discharge Disposition: Home Discharge Instruct/Medications Diet: Consistent carbohydrate, Cardiac 2g Na,low cholest Activity: No Restrictions, As Tolerated Follow Up/Referral: [facility]CP [facility] for [address] ABPV/Liver for liver mass/lesion Medications: as per EMR Scheduled Acetaminophen (Tylenol 8 Hour Arthritis), 650 MG PO TID Cephalexin ( Keflex 500), 1 CAP PO TID Methylprednisolone (Medrol Dosepak), 4 MG PO UD Nitrofurantoin Monohydrate Mac (Macrobid), 100 MG PO BID Pantoprazole Sodium Sesquihydr (Pantoprazole Sodium), 40 MG PO DAILY Prednisone (Prednisone), 40 MG PO DAILY Tamsulosin Hcl (Flomax), 1 CAP PO DAILY Scheduled PRN Acetaminophen (Tylenol), 325 MG PO Q4HP PRN for PAIN SCALE 1 THRU 6, (Reported) Acetaminophen (Tylenol), 325 MG PO Q4HP PRN for PAIN SCALE 1 THRU 6, (Reported) Acetaminophen (Acetaminophen Er), 650 MG PO TIDPRN PRN Baclofen (Baclofen), 10 MG PO BIDPRN PRN Clindamycin Hcl (Clindamycin Hcl), 1 CAP PO TID PRN Ibuprofen (Ibuprofen), 1 TAB PO TID PRN for PAIN SCALE 1 THRU 6, (Reported) Ondansetron Odt 4MG Tab (Zofran Po), 4 MG PO TIDPRN PRN Tramadol Hcl (Tramadol Hcl), 50 MG PO TID PRN for PAIN SCALE 7 THRU 10, (Reported) Discharge Statement: "Patient was advised to return to the ER or call 911 if any headaches, d izziness, shortness of breath, chest pain, abdominal pain, bleeding, fevers, or worsening of medical condition. Patient was counseled about treatment plan, medications, possible side effects, patientverbalized understanding. All questions were answered to the best of my ability. This discharge took greater then 30 minutes in planning, reviewing documentation, counseling the patient, and discussing with other team members." ASSESSMENT ASSESSMENT Assessment acute complicated UTI Visit Coding STANDARD RES Billing Provider: LYNN SÁNCHEZ MD Date of Service if different f: Feb 16, 2025 Common Visit Codes: 24457-LUJ/OBS DISCH DAY >30min BONITA GIL RESIDENT Feb 16, 2025 10:08
[2025-02-16 10:26] LABS: Anion Gap 9 (5-15); Carbon Dioxide 25 mmol/L (20-31); Chloride 106 mmol/L (98-107); Potassium 4.1 mmol/L (3.5-5.1); Sodium 140 mmol/L (136-145)
[2025-02-16 10:27] LABS: Calcium 9.4 mg/dL (8.7-10.4)
[2025-02-16 10:32] LABS: BUN/Creatinine Ratio 11.9 (10.0-20.0); Magnesium 2.0 mg/dL (1.6-2.6)
[2025-02-16 10:34] LABS: Blood Urea Nitrogen 8 mg/dL (9-23); Glucose 205 mg/dL (74-106)
[2025-02-16 10:49] VITALS: BP 119/52; PULSE 79; RESP 19; TEMP 97.9; O2SAT 95
[2025-02-16 13:00] VITALS: BP 132/87; PULSE 89; RESP 18; TEMP 97.7; O2SAT 98
== END 2025-02-16 12:40 | disposition home or self-care (01) | DRG 690 ==
LOC: ER 12:30 → EDUNIT# 23:36 → OVERFLOW 23:36 → WEST WING 02-15 03:55
PROVIDERS: ADMIT Student in an Organized Health Care Education/Training Program; ATTEND Student in an Organized Health Care Education/Training Program
DX: N10 Acute pyelonephritis (principal); E78.5 Hyperlipidemia, unspecified; K76.0 Fatty (change of) liver, not elsewhere classified; K57.30 Diverticulosis of large intestine without perforation or abscess without bleeding; K76.9 Liver disease, unspecified; R73.03 Prediabetes; Z91.041 Radiographic dye allergy status; Z87.442 Personal history of urinary calculi
CPT/HCPCS: 36415; 74176; 80048; 80053; 80061; 80307; 81001; 82105; 83036; 83735; 85025; 86141; 87040; 87086; 87088; 87186; 96374; G0378; J1885; J2470